=== PATIENT | male | born 1975 | race Caucasian/White ===

== ENCOUNTER 2016-08-05 23:59 | Emergency (ER) | payer MEDICAID ==
[~2016-08-05] VITALS: Ht 172.7 cm; Wt 69.6 kg
[~2016-08-05 23:59] MED LIST: LIBRIUM; LORA-446 PO; PHEN100C PO; no medications
[2016-08-06 01:46] VITALS: BP 149/99
== END 2016-08-06 01:54 | disposition home or self-care (01) ==
LOC: ED 08-06 01:39
DX: R51 Headache (principal); M25.521 Pain in right elbow; G40.909 Epilepsy, unspecified, not intractable, without status epilepticus; F10.220 Alcohol dependence with intoxication, uncomplicated; Y04.8XXA Assault by other bodily force, initial encounter; Y93.89 Activity, other specified; Y99.8 Other external cause status; Y92.89 Other specified places as the place of occurrence of the external cause
CPT/HCPCS: 70450; 99284

== ENCOUNTER 2019-08-29 09:13 | Emergency (ER) | payer MEDICAID ==
[~2019-08-29] VITALS: Ht 167.6 cm; Wt 63.1 kg
--- NOTE | 2019-08-29 10:25 | NUR ---
PT REPORTS HE WANTS TO DETOX FROM ALCOHOL. DRINKS 1 PT A DAY. LAST DRINK WAS AT 0800 THIS MORNING. PT HAS NO OTHER COMPLAINTS. PTS RESP EVEN AND UNLABORED. CIERRA BROOKS. PT RESTING ON [employer] W/ CALL LIGHT IN REACH, CONNECTED TO MONITORING. AT BEDSIDE.
[2019-08-29 10:43] LABS: BASOPHILS # (AUTO) 0.01 x10^3/uL (0-0.1); BASOPHILS % (AUTO) 0 % (0-1); EOSINOPHILS # (AUTO) 0.09 x10^3/uL (0-0.4); EOSINOPHILS % (AUTO) 2 % (1-7); LYMPHOCYTES # (AUTO) 1.64 x10^3/uL (1-3.4); LYMPHOCYTES % (AUTO) 30 % (22-44); MD NO; MEAN CORPUSCULAR HEMOGLOBIN 29.7 pg (27.5-34.5); MEAN CORPUSCULAR HGB CONC 33.3 g/dL (33.2-36.2); MEAN CORPUSCULAR VOLUME 89.4 fL (81-97); MEAN PLATELET VOLUME 7.8 fL (7.4-10.4); MONOCYTES # (AUTO) 0.43 x10^3/uL (0.2-0.8); MONOCYTES % (AUTO) 8 % (2-9); NEUTROPHILS # (AUTO) 3.37 x10^3/uL (1.8-6.8); NEUTROPHILS % (AUTO) 61 % (42-75); PLATELET COUNT 173 x10^3/uL (130-400); RED BLOOD COUNT 5.36 x10^6/uL (4.38-5.82); RED CELL DISTRIBUTION WIDTH 15.7 % (9.4-14.8)
[2019-08-29 10:54] LABS: ALBUMIN 3.9 g/dL (3.4-5.0); ANION GAP 12 mmol/L (5-15); CHLORIDE 105 mmol/L (98-107)
[2019-08-29 10:55] VITALS: BP 138/98
[2019-08-29 10:55] LABS: CREATININE 0.65 mg/dL (0.7-1.3)
== END 2019-08-29 11:40 | disposition home or self-care (01) ==
LOC: ED 11:34
DX: F10.129 Alcohol abuse with intoxication, unspecified (principal); R00.0 Tachycardia, unspecified; F17.200 Nicotine dependence, unspecified, uncomplicated; Y90.0 Blood alcohol level of less than 20 mg/100 ml
CPT/HCPCS: 36415; 80048; 82040; 85025; 93005; 99284

== ENCOUNTER 2020-09-15 18:02 | Emergency (ER) | payer MEDICAID ==
[~2020-09-15] VITALS: Ht 167.6 cm; Wt 70.0 kg
--- NOTE | 2020-09-15 18:39 | NUR ---
PT BIB EMS FOR HEAT EXPOSURE. PER EMS PT ALSO HAS HX OF SEIZURES AND "FELL DOWN" BUYING AL[facility]OL AT THE [facility]. EMS UNSURE IF PATIENT HAD SZ OR JUST FELL. PT STATES HE USED TO TAKE MEDICATION FOR SEIZURES BUT HAS NOT IN 2 YEARS. PT RESTING IN [facility], MONITORING IN PLACE, NADLuana AT THIS TIME, TM.
[2020-09-15] MEDS ORDERED: SODIUM CHLORIDE FLUSH 10ML SYR IVF ONE (19:00)
[2020-09-15] MEDS ORDERED: LORazepam 2 MG/ML, 1ML IVPush PRN (19:00)
[2020-09-15] MEDS ORDERED: THIAMINE 100MG TABLET PO ONE (19:00)
[2020-09-15] MEDS ORDERED: SODIUM CHLORIDE 0.9% 1,000ML IVBOLUS ONE (19:00)
[2020-09-15 19:02] LABS: MEAN CORPUSCULAR HEMOGLOBIN 31.9 pg (27.5-34.5); MEAN CORPUSCULAR HGB CONC 33.7 g/dL (33.2-36.2); PLATELET COUNT 114 x10^3/uL (130-400); RED BLOOD COUNT 4.48 x10^6/uL (4.38-5.82); RED CELL DISTRIBUTION WIDTH 13.5 % (9.4-14.8)
[2020-09-15] MEDS ORDERED: LORazepam 2 MG/ML, 1ML ONE (19:02)
[2020-09-15] MEDS ORDERED: THIAMINE 100MG TABLET ONE (19:02)
--- NOTE | 2020-09-15 19:09 | NUR ---
ASSUMED CARE OF PATIENT. REPORT GIVEN FROM ADRIENNE MELENDEZ
[2020-09-15 19:12] LABS: ALBUMIN 3.8 g/dL (3.4-5.0); ANION GAP 8 mmol/L (5-15); CALCIUM 9.6 mg/dL (8.5-10.1); CHLORIDE 105 mmol/L (98-107); CREATININE 0.73 mg/dL (0.7-1.3)
[2020-09-15 19:25] LABS: BAND#(MANUAL) 0.05 x10^3/uL; BANDS%(MANUAL) 1 % (0-7); EOS#(MANUAL) 0.05 x10^3/uL (0.0-0.4); EOS% (MANUAL) 1 % (1-7); LYMPH#(MANUAL) 0.53 x10^3/uL (1-3.4); LYMPHS% (MANUAL) 10 % (22-44); MONOS#(MANUAL) 0.21 x10^3/uL (0.3-2.7); MONOS% (MANUAL) 4 % (2-9); SEG#(MANUAL) 4.45 x10^3/uL (1.8-6.8); SEGS% (MANUAL) 84 % (42-75)
[2020-09-15 19:26] LABS: <PLATELET ESTIMATE> DECREASED; <PLT MORPHOLOGY> NORMAL PLT MORPH
[2020-09-15 19:27] LABS: STOMATOCYTES 1+
[2020-09-15 19:28] LABS: ANISOCYTOSIS 1+; MICROCYTOSIS 1+
--- NOTE | 2020-09-15 20:04 | NUR ---
PT RESTING IN ROOM. VS STABLE. CALL LIGHT IN PLACE. WILL CONTINUE TO MONITOR.
[2020-09-15 20:23] VITALS: BP 129/86
--- NOTE | 2020-09-15 21:10 | NUR ---
PT ABLE TO GET SELF DRESSED AND ABMULATE SAFELY AROUND ROOM AND GOMEZ. PT IS A&O X4. PT GIVEN A BUS PASS AND JUCIE AND CRACKERS TO GO. VS STABLE. NO ACUTE DISTRESS. PT DISCHARGED.
== END 2020-09-15 21:16 | disposition home or self-care (01) ==
LOC: ED 20:55
DX: G40.309 Generalized idiopathic epilepsy and epileptic syndromes, not intractable, without status epilepticus (principal); F10.139 Alcohol abuse with withdrawal, unspecified; R00.0 Tachycardia, unspecified; Y90.0 Blood alcohol level of less than 20 mg/100 ml
CPT/HCPCS: 36415; 80048; 82040; 85025; 96361; 96374; 99283; J2060; J7030

== ENCOUNTER 2020-10-28 00:39 | Emergency (ER) | payer MEDICAID ==
[~2020-10-28] VITALS: Ht 167.6 cm; Wt 70.0 kg
--- NOTE | 2020-10-28 00:40 | NUR ---
INITIAL PT CONTACT. PT PRESENTS TO ED VIA EMS C/O GLF AND ETOH INTOXICATION. C/O BILAT KNEE PAIN AND ABRASIONS. NO NECK PAIN, BACK PAIN OR LOC. PT SITTING UPIGHT ON GURNEY, NADN, VSS. PT DENIES ANY NEEDS AT THIS TIME. BLANKET PROVIDED. CALL LIGHT AND BELONGINGS WITHIN REACH. AWAITING ERP.
--- NOTE | 2020-10-28 00:52 | NUR ---
PT PROVIDED URINAL PER REQUEST. NO ADDITIONAL NEEDS AT THIS TIME.
--- NOTE | 2020-10-28 01:35 | NUR ---
RELIEF RN: PT SLEEPING. RR EVEN NON LABORED. WILL CTM.
--- NOTE | 2020-10-28 02:16 | NUR ---
BILAT KNEE ABRASIONS CLEANSED WITH SALINE. PT TOLERATED WELL. NO ADDITIONAL NEEDS AT THIS TIME.
--- NOTE | 2020-10-28 03:00 | NUR ---
PT AMBULATORY WITH STEADY GAIT TO BATHROOM. ERP AWARE. AWAITING D/C
[2020-10-28 03:20] VITALS: BP 112/73
--- NOTE | 2020-10-28 03:20 | NUR ---
Patient given discharge instructions and they have confirmed that they understand the instructions. Patient ambulatory with steady gait. NAD, all questions answered appropriately, denies additional needs at this time. No personal belongings left in room after discharge.
== END 2020-10-28 03:22 | disposition home or self-care (01) ==
LOC: ED 01:00
DX: S80.212A Abrasion, left knee, initial encounter (principal); S80.211A Abrasion, right knee, initial encounter; F10.129 Alcohol abuse with intoxication, unspecified; G31.2 Degeneration of nervous system due to alcohol; Z72.9 Problem related to lifestyle, unspecified; F17.200 Nicotine dependence, unspecified, uncomplicated; Y90.0 Blood alcohol level of less than 20 mg/100 ml; X58.XXXA Exposure to other specified factors, initial encounter; Y93.89 Activity, other specified; Y92.89 Other specified places as the place of occurrence of the external cause; Y99.8 Other external cause status
CPT/HCPCS: 99281; 99283